=== PATIENT | male | born 1945 | race Caucasian/White ===

== ENCOUNTER 2017-09-28 09:32 | Inpatient (IN) | payer MEDICARE, OTHER ==
[~2017-09-28] VITALS: Ht 170.2 cm; Wt 98.0 kg
--- NOTE | 2017-09-28 09:38 | NUR ---
[id number] FROM [facility] C/O ELEVATED HEART RATE. PATIENT IS ALERT AND ORIENTED X1-2 WITH EPISODES CONFUSION. BREATHING EVEN AND UNLABORED WITH NO DISTRESS NOTED. SKIN INTACT WNL. PLACED ON USER EXPERIENCE DESIGNER. AWAITING TO BE SEEN BY MD FOR FURTHER ORDERS
[2017-09-28 09:51] LABS: BASOPHILS # (AUTO) 0.1 /CMM (0.0-0.2); BASOPHILS % (AUTO) 0.7 % (0.0-2.0); EOSINOPHILS % (AUTO) 1.2 % (0.0-6.0); HEMATOCRIT 42 % (39-51); HEMOGLOBIN 13.9 g/dL (13.5-17.5); LYMPHOCYTES # (AUTO) 1.3 /CMM (0.8-4.8); LYMPHOCYTES % (AUTO) 10.7 % (20.0-44.0); MEAN CORPUSCULAR HEMOGLOBIN 28 PG (26.0-33.0); MEAN CORPUSCULAR HGB CONC 33 g/dl (31.0-36.0); MEAN CORPUSCULAR VOLUME 84 fL (80-96); MONOCYTES # (AUTO) 0.6 /CMM (0.1-1.30); MONOCYTES % (AUTO) 5.1 % (2.0-12.0); NEUTROPHILS # (AUTO) 9.7 /CMM (1.8-8.9); NEUTROPHILS % (AUTO) 82.3 % (43.0-81.0); PLATELET COUNT (AUTO) 298 /CMM (150-450); RDW COEFFICIENT OF VARIATION 13.5 (11.5-15.0); RED BLOOD CELL COUNT(AUTO) 4.99 MIL/uL (4.5-6.0); WHITE BLOOD COUNT (AUTO) 11.8 K/uL (4.3-11.0)
--- NOTE | 2017-09-28 09:59 | NUR ---
ELECTRICAL CAD DESIGNER AT BEDSIDE FOR CHEST X-RAY
[2017-09-28] MEDS ORDERED: IV NS 0.9% 1,000 ML BAG IV ONE (10:00)
[2017-09-28 10:01] LABS: CALCIUM, SERUM 8.9 mg/dL (8.5-10.1); CREATININE 2.4 mg/dL (0.6-1.3); POTASSIUM 3.7 mmol/L (3.5-5.1)
[2017-09-28 10:05] LABS: INR 0.98 (0.85-1.15)
[2017-09-28 10:09] LABS: TROPONIN I 0.085 ng/mL (0.00-0.056)
[2017-09-28 10:13] LABS: ALBUMIN 3.4 g/dL (3.4-5.0); BILIRUBIN,DIRECT 0.2 mg/dL (0.0-0.2); BILIRUBIN,TOTAL 1.2 mg/dL (0.2-1.0)
--- NOTE | 2017-09-28 10:25 | NUR ---
PATIENT ASLEEP IN NO DISTRESS
--- NOTE | 2017-09-28 11:29 | NUR ---
CALLED NURSING HEARING AID ASSISTANT AND REQUESTED A PAWEL BED FOR THIS PT.
--- NOTE | 2017-09-28 11:36 | NUR ---
CALLED [facility] FOR PANEL CALL AND JOSE A MAI WAS PAGED.
[2017-09-28] MEDS ORDERED: ADENOSINE 6 MG/2 ML VIAL ONE (11:57)
[2017-09-28] MEDS ORDERED: ADENOSINE 6 MG/2 ML VIAL IVP ONE (12:00)
[2017-09-28] MEDS ORDERED: MAGN400O6 PO (12:04)
[2017-09-28] MEDS ORDERED: GLIP5TAB13 PO (12:04)
[2017-09-28] MEDS ORDERED: METO25TA6 PO (12:04)
[2017-09-28] MEDS ORDERED: HYDR12.5 PO (12:04)
[2017-09-28] MEDS ORDERED: NA P133E RC (12:04)
[2017-09-28] MEDS ORDERED: BISA10SU61 RC (12:04)
[2017-09-28] MEDS ORDERED: LEVO50TA8 PO (12:04)
[2017-09-28] MEDS ORDERED: OMEG1CAP40 PO (12:04)
[2017-09-28] MEDS ORDERED: NIAC500T8 PO (12:04)
[2017-09-28] MEDS ORDERED: ATOR80TA PO (12:04)
[2017-09-28] MEDS ORDERED: ACET325T53 PO (12:04)
[2017-09-28] MEDS ORDERED: CALC500T3 PO (12:04)
[2017-09-28] MEDS ORDERED: BENA40TA67 PO (12:04)
[2017-09-28] MEDS ORDERED: ERGO500040 PO (12:04)
--- NOTE | 2017-09-28 12:19 | NUR ---
PT IS ASSIGNED TO [facility] RM# [id number], DX: NON-STEMI, CHF, TACHYCARDIA, AND ACCEPTING: JOSE A MAI NP.
--- NOTE | 2017-09-28 12:29 | NUR ---
REPORT GIVEN TO YENI BLAKE FOR MANUELA PAWEL 108
--- NOTE | 2017-09-28 12:30 | NUR ---
RN NOTES RECEIVED REPORT FROM ALYSA, ER NURSE
[2017-09-28 13:00] VITALS: BP 128/77
[2017-09-28] MEDS ORDERED: Medication Not On Formulary EA (Omega-3 Fatty Acids/Fish Oil (Omega 3 1,000 Mg Softgel) PO SCH (13:00)
[2017-09-28] MEDS ORDERED: BISACODYL SUPP (10 MG) 10 MG/SUPP.RECT SUPP.RECT RC PRN (13:00)
[2017-09-28] MEDS ORDERED: MAGNESIUM HYDROXIDE 30 ML UDC PO PRN (13:00)
[2017-09-28] MEDS ORDERED: ACETAMINOPHEN 325 MG TABLET PO PRN (13:00)
--- NOTE | 2017-09-28 13:00 | NUR ---
RN NOTES RECEIVED PT FROM ER, ACCOMPANIED BY ROULA WATT RN. PT IS ALERT/ORIENTED X2-3, NOTED WITH CONFUSION. ORIENTED TO ROOM, PLACED ON TELEMONITOR, SR HR 80S ON TELEMONITOR, ON 2L O2 VIA NC, TOLERATING WELL, NO SOB NOTED. DENIES ANY PAIN(CHEST PAIN), WITH INTACT AND PATENT L WRIST G18 SL. INITIAL ASSESSMENT DONE, VS TAKEN. SAFETY MEASURES IN PLACED. BED IN LOW AND LOCKED POSITION, 1/2 SR UP, BED ALARM ON, CALL LIGHT WITHIN REACH. PROVIDED COMFORT MEASURES. WILL CONT TO MONITOR
[2017-09-28] MEDS ORDERED: MORPHINE SULFATE INJ 2 MG/ML DISP.SYRIN IV PRN (13:30)
[2017-09-28] MEDS ORDERED: ONDANSETRON HCL/PF 4 MG/2 ML VIAL IVP PRN (13:30)
[2017-09-28] MEDS ORDERED: DEXTROSE 50%-WATER 50 ML DISP.SYRIN IV PRN (13:30)
[2017-09-28] MEDS ORDERED: DOCUSATE SODIUM 100 MG CAPSULE PO PRN (13:30)
[2017-09-28] MEDS: IV NS 0.9% 1,000 ML IV PRN (13:42)
[2017-09-28] MEDS: CALCIUM CARBONATE (1250) 500 MG TABLET PO SCH ×2 (13:48→17:01)
[2017-09-28 13:52] LABS: MAGNESIUM 1.9 mg/dL (1.8-2.4); PHOSPHORUS 3.8 mg/dL (2.5-4.9)
[2017-09-28] MEDS: ENOXAPARIN SODIUM 30 MG/0.3 ML DISP.SYRIN SQ SCH (13:55)
[2017-09-28] MEDS ORDERED: NITROGLYCERIN 30 GM TUBE TP PRN (14:00)
--- NOTE | 2017-09-28 14:00 | NUR ---
RN NOTES NOTED PT WITH CONFUSION, TRYING TO GET UP STATING HE NEEDS, TO GO TO BATHROOM, BUT WHEN ASSISTED PT DOES NOT GO. NOTIFIED SUBSTATION INSPECTOR JOSE A, OK TO PUT ON 1:1 SITTER PLACED ON 1:1 SITTER
[2017-09-28 14:02] LABS: THYROID STIMULATING HORMONE 3.378 uIU/mL (0.358-3.74)
[2017-09-28 16:00] VITALS: BP_SYST 137; BP_DIAS 81; BP_DIAS 87
[2017-09-28 16:52] LABS: TROPONIN I 0.142 ng/mL (0.00-0.056)
[2017-09-28] MEDS: glipiZIDE 5 MG TABLET PO SCH (17:01)
[2017-09-28] MEDS: INSULIN REGULAR, HUMAN 100 UNIT/ML 3 ML VIAL SQ PRN ×2 (17:02→22:56)
[2017-09-28] MEDS: METOPROLOL TARTRATE 25 MG TABLET PO SCH (17:06)
[2017-09-28] MEDS: BLOOD SUGAR DIAGNOSTIC 1 EACH STRIP IN SCH ×2 (17:10→22:55)
[2017-09-28 17:12] LABS: APPEARANCE,URINE CLEAR (CLEAR); BILIRUBIN,URINE NEGATIVE (NEGATIVE); BLOOD, URINE NEGATIVE Ery/uL (NEGATIVE); COLOR,URINE YELLOW (YELLOW); KETONES,URINE NEGATIVE (NEGATIVE); LEUKOCYTE ESTERASE ,URINE NEGATIVE (NEGATIVE); NITRITE, URINE NEGATIVE (NEGATIVE); PROTEIN,URINE 2+ mg/dl (NEGATIVE); UGLUCOSE NEGATIVE (NEGATIVE); UROBILINOGEN,URINE 0.2 EU/dL (0.2)
[2017-09-28 17:30] LABS: BACTERIA,URINE Few /HPF (None Seen); EOSINOPHIL,URINE None Seen; RBC,URINE 0-2 /HPF (0-2); SQUAMOUS EPITHELIAL CELL,UR Few /HPF (None Seen); WBC,URINE 0-2 /HPF (0-3)
[2017-09-28 18:14] LABS: CREATININE, URINE 185.5 MG/DL (30.0-125.0); URINE TOTAL PROTEIN 156.4 mg/dL (0-11.9)
--- NOTE | 2017-09-28 19:28 | NUR ---
RN NOTES PT IN STABLE CONDITION. NO ACUTE DISTRESS NOTED THROUGHOUT SHIFT. SAFETY MEASURES OBSERVED AT ALL TIMES. ALL NEEDS ANTICIPATED. ENDORSED TO PM SHIFT NURSE FOR MANUELA
[2017-09-28 20:00] VITALS: BP 113/68
--- NOTE | 2017-09-28 20:23 | NUR ---
PAWEL RN OPENING NOTES RECEIVED REPORT FROM HAYDEN JAIME. PATIENT A/A/O X1-2 W/ SOME CONFUSION BUT ABLE TO MAKE NEEDS KNOWN & STATE PAIN. BREATHING EVEN & UNLABORED, TOLERATING O2 @ 2LPM. DENIES ANY SOB OR DIFFICULTY BREATHING. ON TELE W/ SINUS RHYTHM, HR 64. DENIES CHEST PAIN OR DISCOMFORT. LEFT WRIST IV PULLED OUT, WILL REINSERT. SKIN WARM, DRY & INTACT. DENIES ANY OTHER PAIN @ THIS TIME. SAFETY MEASURES IN PLACE W/ BED ALARM ON & CALL LIGHT WITHIN REACH. 1:1 SITTER @ BEDSIDE. WILL CONTINUE TO MONITOR CLOSELY.
[2017-09-28] MEDS ORDERED: SIMVASTATIN 20 MG TABLET PO SCH (22:00)
--- NOTE | 2017-09-28 22:30 | NUR ---
PAWEL RN NOTES RETURNED W/ PATIENT FROM RADIOLOGY FOR LUNG SCAN.
[2017-09-29] VITALS: BP 132/73
[2017-09-29] MEDS: METOPROLOL TARTRATE 25 MG TABLET PO SCH ×4 (00:18→18:00)
[2017-09-29 04:00] VITALS: BP 120/57
[2017-09-29] MEDS: IV NS 0.9% 1,000 ML IV PRN (04:07)
[2017-09-29 06:31] LABS: BASOPHILS % (AUTO) 0.4 % (0.0-2.0); EOSINOPHILS % (AUTO) 1.8 % (0.0-6.0); HEMATOCRIT 35 % (39-51); HEMOGLOBIN 11.6 g/dL (13.5-17.5); LYMPHOCYTES # (AUTO) 1.5 /CMM (0.8-4.8); LYMPHOCYTES % (AUTO) 20.2 % (20.0-44.0); MEAN CORPUSCULAR HEMOGLOBIN 29 PG (26.0-33.0); MEAN CORPUSCULAR HGB CONC 33 g/dl (31.0-36.0); MEAN CORPUSCULAR VOLUME 88 fL (80-96); MONOCYTES # (AUTO) 0.5 /CMM (0.1-1.30); MONOCYTES % (AUTO) 6.5 % (2.0-12.0); NEUTROPHILS # (AUTO) 5.2 /CMM (1.8-8.9); NEUTROPHILS % (AUTO) 71.1 % (43.0-81.0); PLATELET COUNT (AUTO) 205 /CMM (150-450); RDW COEFFICIENT OF VARIATION 14.7 (11.5-15.0); WHITE BLOOD COUNT (AUTO) 7.3 K/uL (4.3-11.0)
[2017-09-29 06:39] LABS: TROPONIN I 0.14 ng/mL (0.00-0.056)
[2017-09-29 06:44] LABS: ALBUMIN 2.8 g/dL (3.4-5.0); BILIRUBIN,TOTAL 0.9 mg/dL (0.2-1.0); CALCIUM, SERUM 7.8 mg/dL (8.5-10.1); CREATININE 2.1 mg/dL (0.6-1.3); POTASSIUM 3.4 mmol/L (3.5-5.1); THYROID STIMULATING HORMONE 2.387 uIU/mL (0.358-3.74); TOTAL PROTEIN, SERUM 5.9 g/dL (6.4-8.2)
[2017-09-29 08:00] VITALS: BP 152/83
[2017-09-29] MEDS: glipiZIDE 5 MG TABLET PO SCH ×2 (08:26→18:19)
[2017-09-29] MEDS: LEVOTHYROXINE SODIUM 25 MCG TABLET PO SCH (08:26)
[2017-09-29] MEDS: BLOOD SUGAR DIAGNOSTIC 1 EACH STRIP IN SCH ×4 (08:26→21:47)
[2017-09-29] MEDS: INSULIN REGULAR, HUMAN 100 UNIT/ML 3 ML VIAL SQ PRN ×2 (08:27→14:26)
--- NOTE | 2017-09-29 09:00 | NUR ---
Patient with 1:1 sitter at bedside. Patient is resting with eyes closed. He can take moring meds by mouth without difficulty. Titus Wylie RN
[2017-09-29] MEDS: POTASSIUM CHLORIDE 20 MEQ TAB.PRT.SR PO SCH ×2 (09:55→10:25)
[2017-09-29] MEDS: CALCIUM CARBONATE (1250) 500 MG TABLET PO SCH ×3 (09:56→18:19)
[2017-09-29] MEDS: ASPIRIN 81 MG TAB.CHEW PO SCH (09:56)
[2017-09-29 12:00] VITALS: BP 144/76
--- NOTE | 2017-09-29 14:30 | NUR ---
BS this afternoon, 165, and patient did receive regular insulin 3 units per sliding scale per do. Titus Wylie RN
--- NOTE | 2017-09-29 15:22 | NUR ---
Patient has 1:1 sitter at bedside for his protection. He requires a sitter due to the fact that he can get up out of bed on his own, is a high fall risk. He is verbally belligerent at times, however can follow instrucions and directions well. No co pain. He did have a bowel movement today in the bathroom." Titus Wylie RN
--- NOTE | 2017-09-29 18:00 | NUR ---
Patient BS 113, and no insulin necessarty. I did start #20 guage to Left forearm, and main IV restarted. Titus Wylie RN
--- NOTE | 2017-09-29 19:40 | NUR ---
RN OPENING NOTES: RECEIVED PATIENT ON BED ASLEEP,AROUSABLE. ORIENTED TO SELF. WITH SITTER AT BEDSIDE. PATIENT IS CALM AT THIS TIME, DENIES ANY PAIN/ CHEST PAIN; IV ACCESS ON RIGHT FOREARM, INTACT. IVF INFUSING ORDERED. SAFETY MEASURES ENSURED AT ALL TIMES. RE ORIENTED NEEDED. CONTINUOUSLY MONITORED.
[2017-09-29 20:00] VITALS: BP 125/68
[2017-09-29] MEDS: ATORVASTATIN 40 MG TABLET PO SCH (21:47)
[2017-09-29] MEDS: ENOXAPARIN SODIUM 30 MG/0.3 ML DISP.SYRIN SQ SCH (21:48)
[2017-09-30] VITALS: BP 146/78
[2017-09-30] MEDS: METOPROLOL TARTRATE 25 MG TABLET PO SCH ×4 (00:03→17:04)
[2017-09-30] MEDS: IV NS 0.9% 1,000 ML IV PRN ×2 (00:07→14:31)
[2017-09-30 04:00] VITALS: BP 151/74
[2017-09-30] MEDS: BLOOD SUGAR DIAGNOSTIC 1 EACH STRIP IN SCH ×4 (06:31→21:39)
--- NOTE | 2017-09-30 06:47 | NUR ---
RN CLOSING NOTES; PATIENT REMAINED IN BED NOT IN APPARENT DISTRESS. REMAINED ON ROOM AIR, NO SOB NOTED. REMAINED SB-SR ON THE MONITOR HR MOSTLY IN THE 60'S. MEDS GIVEN ORDERED PER PARAMETERS. ACCUCHECK DONE. NO COVERAGE NEEDED. AM LABS DRAWN, PENDING RESULT. NO COMPLAINTS OF PAIN. SITTER REMAINED AT BEDSIDE. SAFETY MEASURES ENSURED. CONTINUOUSLY MONITORED. TO ENDORSE TO AM SHIFT RN.
[2017-09-30 06:51] LABS: BASOPHILS % (AUTO) 0.5 % (0.0-2.0); HEMATOCRIT 31 % (39-51); HEMOGLOBIN 10.3 g/dL (13.5-17.5); LYMPHOCYTES # (AUTO) 1.4 /CMM (0.8-4.8); LYMPHOCYTES % (AUTO) 22.9 % (20.0-44.0); MEAN CORPUSCULAR HEMOGLOBIN 29 PG (26.0-33.0); MEAN CORPUSCULAR HGB CONC 34 g/dl (31.0-36.0); MEAN CORPUSCULAR VOLUME 87 fL (80-96); MONOCYTES # (AUTO) 0.4 /CMM (0.1-1.30); MONOCYTES % (AUTO) 5.8 % (2.0-12.0); NEUTROPHILS # (AUTO) 4.3 /CMM (1.8-8.9); NEUTROPHILS % (AUTO) 68.8 % (43.0-81.0); PLATELET COUNT (AUTO) 158 /CMM (150-450); RDW COEFFICIENT OF VARIATION 14.3 (11.5-15.0); RED BLOOD CELL COUNT(AUTO) 3.51 MIL/uL (4.5-6.0); WHITE BLOOD COUNT (AUTO) 6.2 K/uL (4.3-11.0)
[2017-09-30 07:00] VITALS: BP 150/66
[2017-09-30 07:12] LABS: CALCIUM, SERUM 7.5 mg/dL (8.5-10.1); CREATININE 1.9 mg/dL (0.6-1.3); POTASSIUM 3.7 mmol/L (3.5-5.1)
[2017-09-30 08:00] VITALS: BP 150/66
[2017-09-30] MEDS: LEVOTHYROXINE SODIUM 25 MCG TABLET PO SCH (08:47)
[2017-09-30] MEDS: glipiZIDE 5 MG TABLET PO SCH ×2 (08:47→16:51)
[2017-09-30] MEDS: ASPIRIN 81 MG TAB.CHEW PO SCH (08:48)
[2017-09-30] MEDS: CALCIUM CARBONATE (1250) 500 MG TABLET PO SCH ×3 (08:49→16:51)
[2017-09-30 12:14] LABS: PTH, INTACT 65 pg/mL (15-65)
[2017-09-30] MEDS ORDERED: ASPI-1169 PO (13:01)
[2017-09-30] MEDS ORDERED: METO25TA20 PO (13:01)
[2017-09-30] MEDS ORDERED: DOCU-141 PO (13:01)
[2017-09-30] MEDS ORDERED: ENOX30DI SQ (13:01)
[2017-09-30 13:11] LABS: *SPE A/G RATIO 1.2 (0.7-1.7); *SPE ALPHA-1-GLOBULIN 0.3 g/dL (0.0-0.4); *SPE ALPHA-2-GLOBULIN 0.7 g/dL (0.4-1.0); *SPE BETA GLOBULIN 0.9 g/dL (0.7-1.3); *SPE GLOBULIN, TOTAL 2.6 g/dL (2.2-3.9); *SPE M-SPIKE Not Observed g/dL (Not Observed); *SPEGAMMA GLOBULIN 0.7 g/dL (0.4-1.8)
[2017-09-30 16:00] VITALS: BP 174/96
[2017-09-30] MEDS: INSULIN REGULAR, HUMAN 100 UNIT/ML 3 ML VIAL SQ PRN ×2 (16:57→21:47)
[2017-09-30] MEDS ORDERED: PANTOPRAZOLE 40 MG VIAL IV SCH (17:00)
[2017-09-30 17:50] LABS: IRON, SERUM 23 ug/dl (50-175); TOTAL IRON BINDING CAPACITY 195 ug/dl (250-450)
--- NOTE | 2017-09-30 19:12 | NUR ---
RN NOTES RECEIVED PATIENT AWAKE IN BED, WITH NO DISTRESS NOTED. ON ROOM AIR TOLERATING WELL. NO COMPLAINT OF PAIN OR DISCOMFORT. ALERT AND RESPONSIVE WITH CONFUSION. AMBULATORY, VERBAL. FOR DC IN AM. NO SIGNIFICANT CHANGE OF CONDITION DURING THE SHIFT. WILL ENDORSE TO TANK CREWMEMBER FOR CONTINUITY OF CARE
[2017-09-30 20:00] VITALS: BP 130/78
--- NOTE | 2017-09-30 20:02 | NUR ---
RN OPENING NOTES RECEIVED REPORT FROM FEDE JAIME. PATIENT A/A/O X1-2 W/ SOME CONFUSION BUT ABLE TO MAKE NEEDS KNOWN & STATE PAIN. BREATHING EVEN & UNLABORED, TOLERATING ROOM AIR. DENIES ANY SOB OR DIFFICULTY BREATHING. PULSES PRESENT & BOUNDING. DENIES ANY CHEST PAIN OR DISCOMFORT. RIGHT FOREARM IV #20 INTACT & PATENT W/ DRESSING CDI & IVF NS INFUSING WELL @ 125ML/HR. SKIN WARM, DRY & INTACT. DENIES ANY OTHER PAIN @ THIS TIME. SAFETY MEASURES IN PLACE W/ BED ALARM ON & CALL LIGHT WITHIN REACH. INSTRUCTED TO CALL FOR ASSISTANCE. WILL CONTINUE TO MONITOR.
[2017-09-30] MEDS: ATORVASTATIN 40 MG TABLET PO SCH (21:39)
[2017-09-30] MEDS: ENOXAPARIN SODIUM 30 MG/0.3 ML DISP.SYRIN SQ SCH (21:53)
[2017-10-01] VITALS: BP 136/75
[2017-10-01] MEDS: METOPROLOL TARTRATE 25 MG TABLET PO SCH ×3 (00:44→12:52)
[2017-10-01 04:00] VITALS: BP 167/93
[2017-10-01 06:31] LABS: HEMATOCRIT 33 % (39-51); HEMOGLOBIN 11.3 g/dL (13.5-17.5); MEAN CORPUSCULAR HEMOGLOBIN 30 PG (26.0-33.0); MEAN CORPUSCULAR HGB CONC 34 g/dl (31.0-36.0); MEAN CORPUSCULAR VOLUME 87 fL (80-96); NEUTROPHILS % (AUTO) 72.7 % (43.0-81.0); PLATELET COUNT (AUTO) 167 /CMM (150-450); RDW COEFFICIENT OF VARIATION 14.8 (11.5-15.0); RED BLOOD CELL COUNT(AUTO) 3.79 MIL/uL (4.5-6.0); WHITE BLOOD COUNT (AUTO) 6.6 K/uL (4.3-11.0)
[2017-10-01 06:32] LABS: BASOPHILS % (AUTO) 0.3 % (0.0-2.0); LYMPHOCYTES # (AUTO) 1.3 /CMM (0.8-4.8); LYMPHOCYTES % (AUTO) 19.7 % (20.0-44.0); MONOCYTES # (AUTO) 0.3 /CMM (0.1-1.30); MONOCYTES % (AUTO) 5.3 % (2.0-12.0); NEUTROPHILS # (AUTO) 4.8 /CMM (1.8-8.9)
[2017-10-01 06:55] LABS: CALCIUM, SERUM 8.1 mg/dL (8.5-10.1); CREATININE 1.8 mg/dL (0.6-1.3); POTASSIUM 3.9 mmol/L (3.5-5.1)
[2017-10-01] MEDS: glipiZIDE 5 MG TABLET PO SCH (07:36)
[2017-10-01] MEDS: LEVOTHYROXINE SODIUM 25 MCG TABLET PO SCH (07:37)
[2017-10-01] MEDS: BLOOD SUGAR DIAGNOSTIC 1 EACH STRIP IN SCH (07:45)
[2017-10-01] MEDS: INSULIN REGULAR, HUMAN 100 UNIT/ML 3 ML VIAL SQ PRN (07:46)
[2017-10-01 08:00] VITALS: BP 175/96
[2017-10-01] MEDS: CALCIUM CARBONATE (1250) 500 MG TABLET PO SCH ×2 (08:58→12:48)
[2017-10-01] MEDS: ASPIRIN 81 MG TAB.CHEW PO SCH (08:59)
[2017-10-01] MEDS: IV NS 0.9% 1,000 ML IV PRN (09:00)
[2017-10-01 12:52] VITALS: BP 164/89
--- NOTE | 2017-10-01 13:20 | NUR ---
RN NOTES RECEIVED PATIENT AWAKE IN BED WITH NO DISTRESS NOTED. BREATHING EVEN AND UNLABORED. ROOM AIR TOLERATING WELL. ALERT AND RESPONSIVE WITH CONFUSION. VERBALLY ABLE TO COMMUNICATE NEEDS. NO COMPLAINT OF PAIN OR DISCOMFORT. NEEDS ATTENDED. KEPT CLEAN AND DRY. PICKED-UP BY AMBULANCE AT 12:30 PM FOR TRANSFER BACK TO [place]. VITAL SIGNS WNL. NO PAIN OR DISCOMFORT. NO DISTRESS NOTED.
== END 2017-10-01 13:00 | DRG 280 ==
LOC: ER 09:37 → TELE-TD 12:44 → MEDSG1 09-30 08:33 → TELE1 09-30 22:39 → MEDSG1 10-01 08:37
PROVIDERS: ADMIT Registered Nurse; ATTEND Registered Nurse
DX: I21.4 Non-ST elevation (NSTEMI) myocardial infarction (principal); N17.0 Acute kidney failure with tubular necrosis; I47.1 Supraventricular tachycardia; I48.92 Unspecified atrial flutter; I13.10 Hypertensive heart and chronic kidney disease without heart failure, with stage 1 through stage 4 chronic kidney disease, or unspecified chronic kidney disease; N18.3 Chronic kidney disease, stage 3 (moderate); Z86.73 Personal history of transient ischemic attack (TIA), and cerebral infarction without residual deficits; E11.22 Type 2 diabetes mellitus with diabetic chronic kidney disease; Z66 Do not resuscitate; E78.5 Hyperlipidemia, unspecified; I25.2 Old myocardial infarction; F03.90 Unspecified dementia, unspecified severity, without behavioral disturbance, psychotic disturbance, mood disturbance, and anxiety; E86.0 Dehydration; D72.829 Elevated white blood cell count, unspecified; D64.9 Anemia, unspecified; M19.90 Unspecified osteoarthritis, unspecified site; J44.9 Chronic obstructive pulmonary disease, unspecified
CPT/HCPCS: 36415; 71045-TC; 76770-TC; 78582; 80048-TC; 80053-TC; 80061-TC; 80076-TC; 81000-TC; 82306; 82550-TC; 82570-TC; 82962-TC; 83540-TC; 83605-TC; 83735-TC; 83880; 83970; 84100-TC; 84155; 84155-TC; 84165; 84300-TC; 84439-TC; 84443-TC; 84484-TC; 85025-TC; 85730-TC; 87081-TC; 93307-TC; A4606; A9540; A9567; C9113; J0153; J1650; J1815; J7030; Z7610

== ENCOUNTER 2017-10-01 14:17 | Emergency (ER) | payer MEDICARE, MEDICAID ==
[~2017-10-01] VITALS: Ht 172.7 cm; Wt 90.7 kg
[~2017-10-01 14:17] MED LIST: ACET325T53 PO; ASPI-1169 PO; ATOR80TA PO; BISA10SU61 RC; CALC500T3 PO; DOCU-141 PO; ENOX30DI SQ; ERGO500040 PO; GLIP5TAB13 PO; LEVO50TA8 PO; MAGN400O6 PO; METO25TA20 PO; METO25TA6 PO; NA P133E RC; NIAC500T8 PO; OMEG1CAP40 PO
[2017-10-01] MEDS ORDERED: hydrALAZINE HCL 10 MG TABLET PO ONE (15:00)
[2017-10-01] MEDS ORDERED: hydrALAZINE HCL IV 20 MG VIAL IV ONE (15:30)
[2017-10-01] MEDS ORDERED: hydrALAZINE HCL IV 20 MG VIAL ONE (15:40)
--- NOTE | 2017-10-01 15:48 | NUR ---
SET UP BLS RIG WITH [facility] FOR TRANSPORT BACK TO [facility] - TRIP#[id number] - ETA 60-90 MIN
[2017-10-01] MEDS ORDERED: hydrALAZINE HCL IV 20 MG VIAL IM ONE (16:00)
[2017-10-01 16:20] VITALS: BP 164/85
--- NOTE | 2017-10-01 17:52 | NUR ---
REPORT GIVEN TO [facility] FOR TRANSFER BACK TO FACILITY.
== END 2017-10-01 17:55 ==
LOC: ER 14:20
DX: I10 Essential (primary) hypertension (principal); F03.90 Unspecified dementia, unspecified severity, without behavioral disturbance, psychotic disturbance, mood disturbance, and anxiety; E11.9 Type 2 diabetes mellitus without complications; F10.10 Alcohol abuse, uncomplicated; F17.200 Nicotine dependence, unspecified, uncomplicated; Y90.9 Presence of alcohol in blood, level not specified; Z86.73 Personal history of transient ischemic attack (TIA), and cerebral infarction without residual deficits; Z79.82 Long term (current) use of aspirin
CPT/HCPCS: A4606; J0360; Z7610